=== PATIENT | female | born 1995 | race Two or more races ===

== ENCOUNTER 2024-05-24 15:01 | Inpatient (IN) | payer OTHER ==
[~2024-05-24] VITALS: Ht 144.8 cm; Wt 53.8 kg
[2024-05-24 15:42] LABS: Chloride 108 mmol/L (98-107); Potassium 4.4 mmol/L (3.5-5.1); Sodium 140 mmol/L (136-145)
[2024-05-24 15:43] LABS: Anion Gap 8 (5-15); Basophils # (auto) 0.1 10 ^3/uL (0-0.2); Basophils % (auto) 0.6 % (0.0-2.0); Calcium 9.3 mg/dL (8.7-10.4); Carbon Dioxide 24 mmol/L (20-31); Eosinophils # (auto) 0.1 10 ^3/uL (0-0.8); Eosinophils % (auto) 1.4 % (0.0-7.0); Hematocrit 40.1 % (36.0-46.0); Hemoglobin 13.3 g/dL (12.2-16.2); Lymphocytes # (auto) 1.7 10 ^3/uL (0.4-5.4); Lymphocytes % (auto) 19.7 % (10.0-50.0); Mean Corpuscular Hemoglobin 29.8 pg (28.0-32.0); Mean Corpuscular Hgb Conc. 33.2 g/dL (32.0-36.0); Mean Corpuscular Volume 89.8 fL (80.0-100.0); Monocytes # (auto) 0.8 10 ^3/uL (0-1.3); Monocytes % (auto) 9.4 % (0.0-12.0); Neutrophils % (auto) 68.9 % (37.0-80.0); Nucleated Red Blood Cells % 0.1 %; Platelet Count (auto) 269 10^3/uL (140-450); Red Blood Cells 4.47 10^6/uL (4.0-5.20); Red Cell Distribution Width 13.8 % (11.8-14.3); White Blood Cell 8.7 10^3/uL (4.4-10.8)
[2024-05-24 15:48] LABS: Blood Urea Nitrogen 9 mg/dL (9-23); Glucose 91 mg/dL (74-106)
[2024-05-24 17:27] LABS: Amphetamine Screen, Urine Neg (NEGATIVE); Barbiturate Scree,Urine Neg (NEGATIVE); Benzodiazephine Screen, Urine Pos (NEGATIVE); Cannabinoid Screen, Urine Neg (NEGATIVE); Cocaine Screen, Urine Neg (NEGATIVE); Opiate Scree,Urine Neg (NEGATIVE); Phencyclidine Screen, Urine Neg (NEGATIVE)
[2024-05-24 17:29] VITALS: PULSE 99; RESP 17; O2SAT 99
[2024-05-24 19:10] VITALS: PULSE 65; RESP 20; O2SAT 100
[2024-05-24] MEDS: levETIRAcetam 500 MG TAB PO SCH (20:03)
[2024-05-24] MEDS: ENOXAPARIN SOD 40 MG/0.4 ML SYRINGE SC SCH (20:03)
[2024-05-24] MEDS: SODIUM CHLORIDE 0.9% 500 ML IV ONE (22:30)
[2024-05-24] MEDS: SODIUM CHLORIDE 0.9% 1,000 ML IV SCH (22:55)
[2024-05-25] MEDS: SODIUM CHLORIDE 0.9% 1,000 ML IV ONE ×2 (00:22→02:58)
[2024-05-25 06:00] VITALS: RESP 20; O2SAT 100
[2024-05-25 09:00] VITALS: PULSE 57; RESP 14; O2SAT 98
[2024-05-25] MEDS: GADOTERATE MEG 10 MMOL/20ml INJ (0.5MMOL/ml) IV ONE (13:44)
[2024-05-25] MEDS: LORazepam 2MG/ML-1ML VIAL IV PRN (14:34)
[2024-05-25 19:20] VITALS: PULSE 64; RESP 17; O2SAT 98
[2024-05-26] VITALS (7 sets, daily range): BP systolic 113–136; BP diastolic 56–86; PULSE 42–87; RESP 15–20; TEMP 97.3–98.8; O2SAT 97–99
[2024-05-27] VITALS (7 sets, daily range): BP systolic 95–108; BP diastolic 50–73; PULSE 45–68; RESP 16–18; TEMP 97.9–98.2; O2SAT 97–99
[2024-05-27] MEDS: lamoTRIgine 25 MG TAB PO SCH (08:57)
[2024-05-28] VITALS (8 sets, daily range): BP systolic 89–110; BP diastolic 50–71; PULSE 40–75; RESP 16–18; TEMP 97.4–98.5; O2SAT 95–100
[2024-05-29 01:00] VITALS: BP 105/70; PULSE 94; RESP 18; TEMP 97.5; O2SAT 97
[2024-05-29 05:00] VITALS: BP 103/69; PULSE 85; RESP 18; TEMP 97.6; O2SAT 98
[2024-05-29 08:00] VITALS: PULSE 50; RESP 18; O2SAT 98
[2024-05-29 09:00] VITALS: BP 117/71; PULSE 72; RESP 20; TEMP 98.8; O2SAT 98
[2024-05-29] MEDS ORDERED: DIVA1TAB58 PO (11:56)
[2024-05-29 12:48] VITALS: BP 109/73; PULSE 58; RESP 20; TEMP 97.9; O2SAT 99
== END 2024-05-29 14:45 | DRG 101 ==
LOC: EEVIPCON 15:01 → EDBD 15:01 → ER 15:01 → OVERFLOW 15:31 → WEST WING 23:48 → OVERFLOW 23:56 → WEST WING 05-25 23:45
PROVIDERS: ADMIT Internal Medicine; ATTEND Internal Medicine
DX: G40.909 Epilepsy, unspecified, not intractable, without status epilepticus (principal); J45.909 Unspecified asthma, uncomplicated; R00.1 Bradycardia, unspecified; F41.9 Anxiety disorder, unspecified; G43.909 Migraine, unspecified, not intractable, without status migrainosus; I10 Essential (primary) hypertension; F32.A Depression, unspecified; Z82.0 Family history of epilepsy and other diseases of the nervous system
CPT/HCPCS: 36415; 70450; 70553; 80048; 80164; 80307; 84443; 85025; 86592; 95819; 96360; G0378